=== PATIENT | female | born 1990 | race Caucasian/White ===

== ENCOUNTER 2020-12-15 15:49 | Emergency (ER) | payer OTHER, SELFPAY ==
[2020-12-15 15:58] VITALS: BP 113/77; PULSE 80; RESP 18; TEMP 35.9; O2SAT 100
--- NOTE | 2020-12-15 16:23 | PC.NURSE ---
PT WANTED TESTED FOR COVID BECAUSE HER DAUGHTER WAS GETTING TESTED, DENIES ANY COMPLAINTS AND REFUSED TO STAY FOR FURTHER EVALUATION
== END 2020-12-15 16:05 | disposition left against medical advice (07) ==
PROVIDERS: Emergency Provider Internal Medicine Hematology & Oncology
DX: Z53.21 Procedure and treatment not carried out due to patient leaving prior to being seen by health care provider (principal)
CPT/HCPCS: 99199